=== PATIENT | female | born 1990 | race Caucasian/White ===

== ENCOUNTER 2018-11-02 08:32 | Emergency (ER) | payer OTHER ==
[~2018-11-02] VITALS: Ht 165.1 cm; Wt 58.1 kg
[~2018-11-02 08:32] MED LIST: AMOX1TAB12 PO; DAYQUIL
== END 2018-11-02 13:20 | disposition home or self-care (01) ==
LOC: ER 08:32
DX: N39.0 Urinary tract infection, site not specified (principal); M54.5 Low back pain